=== PATIENT | male | born 1960 | race Hispanic/Latino ===

== ENCOUNTER 2022-04-13 09:50 | Emergency (ER) | payer OTHER ==
[~2022-04-13] VITALS: Ht 157.5 cm; Wt 92.5 kg
[2022-04-13 10:34] LABS: CREATININE 1.5 mg/dL (0.5-1.5); POTASSIUM 4.5 mmol/L (3.5-5.1)
[2022-04-13 10:36] LABS: BASOPHILS % (AUTO) 0.5 % (0.0-5.0); EOSINOPHILS % (AUTO) 0.1 % (0.0-8.0); LYMPHOCYTES % (AUTO) 8.9 % (21.0-51.0); MEAN CORPUSCULAR HEMOGLOBIN 29.8 pg (27.0-33.0); MEAN CORPUSCULAR HGB CONC 33.4 g/dL (32.0-36.0); MEAN CORPUSCULAR VOLUME 89.2 fL (79-99); MONOCYTES % (AUTO) 4.7 % (3.0-13.0); NEUTROPHILS % (AUTO) 85.3 % (40.0-77.0); PLATELET COUNT (AUTO) 189 K/uL (130-400); RED BLOOD CELL COUNT(AUTO) 4.93 MIL/uL (4.50-6.20); RED CELL DISTRIBUTION WIDTH 12.9 % (11.0-15.5)
[2022-04-13 10:38] LABS: ALBUMIN 3.9 g/dL (3.5-5.0); BILIRUBIN,TOTAL 0.6 mg/dL (0.2-1.0); TOTAL PROTEIN, SERUM 7.4 g/dL (6.0-8.3)
[2022-04-13 10:47] LABS: APPEARANCE,URINE Clear (CLEAR); BILIRUBIN,URINE Negative (NEGATIVE); COLOR,URINE Dark Yellow (YELLOW); GLUCOSE, URINE (UA) Negative (NEGATIVE); KETONES,URINE Negative (NEGATIVE); LEUKOCYTE ESTERASE ,URINE Small (NEGATIVE); NITRATE,URINE Negative (NEGATIVE); OCCULT BLOOD,URINE Large (NEGATIVE); PH,URINE 6.5 (5.0-8.0); PROTEIN,URINE POS 1+ mg/dL (NEGATIVE); UROBILINOGEN,URINE 0.2 mg/dL (0.2-1.0)
[2022-04-13 11:21] LABS: BACTERIA,URINE Rare /HPF (None Seen); RBC,URINE >100 /HPF (0-1); WBC,URINE 0-1 /HPF (0-1)
[2022-04-13 11:22] LABS: SQUAMOUS EPITHELIAL CELL,UR Rare /HPF (0-2)
[2022-04-13] MEDS ORDERED: ONDANSETRON 4MG INJ IVP ONE ×2 (12:30→20:30)
[2022-04-13] MEDS ORDERED: KETOROLAC 15MG/ML VIAL (15MG/ML) IV ONE (13:00)
[2022-04-13] MEDS ORDERED: MORPHINE 4 MG SYG IVP ONE ×3 (13:00→20:30)
[2022-04-13] MEDS ORDERED: MORPHINE 4 MG SYG ONE (15:23)
[2022-04-14] MEDS ORDERED: MORPHINE 4 MG SYG IVP ONE ×3 (00:30→20:30)
[2022-04-14] MEDS ORDERED: ONDANSETRON 4MG INJ IVP ONE ×3 (00:30→20:30)
[2022-04-14 19:36] LABS: BASOPHILS % (AUTO) 0.7 % (0.0-5.0); EOSINOPHILS % (AUTO) 1.8 % (0.0-8.0); HEMATOCRIT 43.5 % (42-54); LYMPHOCYTES % (AUTO) 29.2 % (21.0-51.0); MEAN CORPUSCULAR HEMOGLOBIN 29.9 pg (27.0-33.0); MEAN CORPUSCULAR HGB CONC 33.6 g/dL (32.0-36.0); MONOCYTES % (AUTO) 9.8 % (3.0-13.0); NEUTROPHILS % (AUTO) 58.2 % (40.0-77.0); PLATELET COUNT (AUTO) 177 K/uL (130-400); RED BLOOD CELL COUNT(AUTO) 4.89 MIL/uL (4.50-6.20); RED CELL DISTRIBUTION WIDTH 12.9 % (11.0-15.5); WHITE BLOOD COUNT (AUTO) 9.1 K/uL (4.8-10.8)
[2022-04-14 19:49] LABS: CREATININE 1.7 mg/dL (0.5-1.5)
[2022-04-14 19:54] LABS: ALBUMIN 3.4 g/dL (3.5-5.0); BILIRUBIN,TOTAL 0.8 mg/dL (0.2-1.0); TOTAL PROTEIN, SERUM 6.8 g/dL (6.0-8.3)
[2022-04-15] MEDS ORDERED: TAMSULOSIN HCL 0.4 MG CAP.ER.24H PO SCH (08:00)
[2022-04-15] MEDS ORDERED: 0.9%NACL 1000ML 1,000 ML IV SCH (08:00)
[2022-04-15] MEDS ORDERED: ONDANSETRON 4MG INJ IVP ONE (12:00)
[2022-04-15] MEDS ORDERED: MORPHINE 4 MG SYG IVP ONE (12:00)
[2022-04-15 12:25] VITALS: BP 155/77
== END 2022-04-15 12:27 | disposition short-term general hospital (02) ==
LOC: EDH 09:50
DX: N13.2 Hydronephrosis with renal and ureteral calculous obstruction (principal); I10 Essential (primary) hypertension; Z20.822 Contact with and (suspected) exposure to COVID-19; Z87.442 Personal history of urinary calculi; Z88.5 Allergy status to narcotic agent; Z88.8 Allergy status to other drugs, medicaments and biological substances
CPT/HCPCS: 36415 ×2; 74176; 80053 ×2; 81001; 85025 ×2; 87635; 96361; 96374; 96375; 96376 ×2; 99285; C9803; J1885; J2270 ×7; J2405 ×6; J7030